=== PATIENT | male | born 1980 | race African-American/Black ===

== ENCOUNTER 2022-11-27 13:06 | Emergency (ER) | payer MEDICAID ==
[~2022-11-27] VITALS: Ht 187.9 cm; Wt 67.1 kg
== END 2022-11-27 15:54 | disposition home or self-care (01) ==
LOC: ED 13:06
DX: S92.534A Nondisplaced fracture of distal phalanx of right lesser toe(s), initial encounter for closed fracture (principal); W50.0XXA Accidental hit or strike by another person, initial encounter; Y93.89 Activity, other specified; Y92.89 Other specified places as the place of occurrence of the external cause; Y99.8 Other external cause status

== ENCOUNTER 2022-12-12 12:33 | Emergency (ER) | payer MEDICAID ==
[~2022-12-12] VITALS: Ht 187.9 cm; Wt 67.6 kg
== END 2022-12-12 14:16 | disposition home or self-care (01) ==
LOC: ED 12:33
DX: S92.401A Displaced unspecified fracture of right great toe, initial encounter for closed fracture (principal); W22.8XXA Striking against or struck by other objects, initial encounter; Y93.89 Activity, other specified; Y92.89 Other specified places as the place of occurrence of the external cause; Y99.8 Other external cause status

== ENCOUNTER 2023-06-07 15:25 | Emergency (ER) | payer SELFPAY ==
[~2023-06-07] VITALS: Wt 68.0 kg
[2023-06-07 16:23] LABS: BASO # 0.1 10*3/uL (0.0-0.1); BASO % 0.9 % (0.0-1.0); EOS # 0.2 10*3/uL (0.0-0.4); EOS % 3.7 % (1.0-4.0); HEMATOCRIT 40.4 % (42.0-52.0); LYMPH # 2.2 10*3/uL (1.3-4.4); LYMPH % 38.4 % (27.0-41.0); MEAN CELL VOLUME 93.5 fl (80.0-94.0); MEAN CORPUSCULAR HGB 32.2 pg (27.0-31.0); MEAN CORPUSCULAR HGB CONC 34.4 g/dl (33.0-37.0); MEAN PLATELET VOLUME 9.1 fl (9.6-12.3); MONO # 0.5 10*3/uL (0.1-1.0); MONO % 9.6 % (3.0-9.0); NEUT # 2.7 10*3/uL (2.3-7.9); NEUT % 47.2 % (47.0-73.0); PLATELET COUNT AUTOMATED 323 10*3/uL (130-400); RED BLOOD COUNT 4.32 10*6/uL (4.50-5.90); WHITE BLOOD COUNT 5.6 10*3/uL (4.8-10.8)
[2023-06-07 16:36] LABS: ACT PARTIAL THROMBO TIME 28.2 SECONDS (20.0-32.1)
[2023-06-07 16:44] LABS: ALKALINE PHOSPHATASE 62 U/L (46-116); BUN 14 mg/dl (9-23); CHLORIDE 101 mmol/L (98-107); POTASSIUM 3.6 mmol/L (3.4-5.1); SGPT/ALT 34 U/L (10-49); TOTAL PROTEIN 7.9 gm/dL (6.0-8.0)
== END 2023-06-07 18:16 | disposition home or self-care (01) ==
LOC: ED 15:25
PROVIDERS: Nurse Practitioner Family
DX: R07.89 Other chest pain (principal); R07.81 Pleurodynia; F17.290 Nicotine dependence, other tobacco product, uncomplicated

== ENCOUNTER 2024-08-02 05:39 | Emergency (ER) | payer SELFPAY ==
[2024-08-02] MEDS ORDERED: LORazepam 1 MG TAB PO ONE (05:50)
[2024-08-02] MEDS ORDERED: VISTARIL25 MG PO (06:25)
== END 2024-08-02 06:35 | disposition home or self-care (01) ==
LOC: ED 05:39
DX: F41.9 Anxiety disorder, unspecified (principal); Z87.891 Personal history of nicotine dependence

== ENCOUNTER 2024-09-20 07:13 | Emergency (ER) | payer OTHER ==
[~2024-09-20] VITALS: Ht 185.4 cm; Wt 68.0 kg
[~2024-09-20 07:13] MED LIST: VISTARIL25 MG PO
[2024-09-20] MEDS ORDERED: SODIUM CHLORIDE 0.9% 1,000 ML IV ONE (07:35)
[2024-09-20 07:51] LABS: BASO # 0.1 10*3/uL (0.0-0.1); BASO % 0.9 % (0.0-1.0); EOS # 0.3 10*3/uL (0.0-0.4); EOS % 4.6 % (1.0-4.0); HEMATOCRIT 39.2 % (42.0-52.0); MEAN CELL VOLUME 93.6 fl (80.0-94.0); MEAN CORPUSCULAR HGB CONC 34.2 g/dl (33.0-37.0); MONO # 0.8 10*3/uL (0.1-1.0); NEUT # 3.4 10*3/uL (2.3-7.9); NEUT % 51.4 % (47.0-73.0); PLATELET COUNT AUTOMATED 328 10*3/uL (130-400); RED BLOOD COUNT 4.19 10*6/uL (4.50-5.90); RED CELL DISTRI WIDTH 12.5 % (0-14.5); WHITE BLOOD COUNT 6.7 10*3/uL (4.8-10.8)
[2024-09-20 08:20] LABS: BUN 6 mg/dl (9-23); CHLORIDE 103 mmol/L (98-107); POTASSIUM 3.2 mmol/L (3.4-5.1)
[2024-09-20] MEDS ORDERED: POTASSIUM CHLORIDE 20 MEQ TAB PO ONE (08:25)
[2024-09-20] MEDS ORDERED: LORazepam 1 MG TAB PO ONE (08:30)
== END 2024-09-20 10:11 | disposition home or self-care (01) ==
LOC: ED 07:13
PROVIDERS: Emergency Medicine
DX: F41.9 Anxiety disorder, unspecified (principal); Z88.8 Allergy status to other drugs, medicaments and biological substances; Z79.899 Other long term (current) drug therapy